=== PATIENT | male | born 1960 | race African-American/Black ===

== ENCOUNTER 2016-07-10 19:17 | Emergency (ER) | payer OTHER, MEDICAID ==
[~2016-07-10] VITALS: Ht 177.8 cm; Wt 102.0 kg
[2016-07-10 19:27] VITALS: BP 122/80
[2016-07-10] MEDS ORDERED: ACETAMINOPHEN 325MG TABLET PO ONE (20:00)
== END 2016-07-10 20:10 | disposition home or self-care (01) ==
LOC: ER 19:17
DX: S30.850A Superficial foreign body of lower back and pelvis, initial encounter (principal); K40.90 Unilateral inguinal hernia, without obstruction or gangrene, not specified as recurrent; Y35.893A Legal intervention involving other specified means, suspect injured, initial encounter; Y93.89 Activity, other specified; Y92.89 Other specified places as the place of occurrence of the external cause
CPT/HCPCS: 99283